=== PATIENT | female | born 2000 | race Caucasian/White ===

== ENCOUNTER 2024-11-07 21:44 | Emergency (ER) | payer OTHER, SELFPAY ==
[2024-11-07 21:47] VITALS: BP 118/72; PULSE 126; RESP 24; TEMP 37.7; O2SAT 99; BMI 21.6
--- NOTE | 2024-11-07 21:50 | EKG_ITS ---
[facility] [address] [address] Test Date: 2024-11-07 Pat Name: Susan Hernández Department: [facility] Room: Gender: Female [employer] Operator: BEREKET ROBERT : 2000 Requested By: Order Number: [id number] Reading MD: Prabhjot Jimenes MD Measurements Intervals [place] Rate: 113 P: 69 UT: 184 QRS: 84 QRSD: 82 T: 28 QT: 322 QTc: 441 Interpretive Statements Sinus tachycardia Electronically Signed On 11-08-2024 9:53:04 PST by Prabhjot Jimenes MD
--- NOTE | 2024-11-07 22:11 | ED_ITS ---
HPI - Anxiety General Chief Complaint: Anxiety Stated Complaint: chest px and tightness, panic attack Time Seen by Provider: 11/07/24 21:55 Source: patient Mode of arrival: Ambulatory History of Present Illness HPI narrative: 24-year-old female with history of anxiety, bipolar disorder presents for chest tightness and anxiety attack. Patient states that she has had worsening anxiety over the last day, abruptly worsening this evening. She says that her chest began to become tight she became short of breath. She states that this has happened to her in the past, but never this intense. She has as needed hydroxyzine for anxiety but only takes it occasionally. No medications taken prior to arrival. Denies history of surgeries or long travel, denies family history of coagulopathy, denies use of OCPs. Patient History Social History Smoking Status: Never smoker Smoking Status: Never smoker Exam Initial Vital Signs Initial Vital Signs: Vital Signs Temperature 99.8 F H 11/07/24 21:47 Pulse Rate 126 H 11/07/24 21:47 Respiratory Rate 24 11/07/24 21:47 Blood Pressure 118/72 11/07/24 21:47 Pulse Oximetry 99 11/07/24 21:47 Oxygen Delivery Method Room Air 11/07/24 21:47 Const: Awake, alert, anxious, nontoxic appearing Cardiac: Tachycardia, regular rhythm RESP: unlabored, clear bilaterally, no wheezing MSK: No swelling, full range of motion, pulses equal Skin: Warm, Dry, intact, no rashes Neuro: AO x3, CN II-XII grossly intact, moves all extremities Course Orders Ordered: Discontinued Medications Lorazepam (Lorazepam 2 Mg/Ml Inj) 0.5 mg IV NOW ONE Stop: 11/07/24 22:12 Last Admin: 11/07/24 22:29 Dose: 0.5 mg Documented By: ЕЛЕНА Vital Signs Vital signs: Vital Signs - 8 hr 11/07/24 21:47 11/07/24 22:24 11/07/24 22:24 Temperature 99.8 F H Pulse Rate 126 H 107 H Respiratory Rate 24 Blood Pressure 118/72 123/70 Pulse Oximetry 99 98 Oxygen Delivery Method Room Air 11/07/24 22:30 11/07/24 22:30 11/07/24 23:00 Temperature Pulse Rate 98 H 90 Respiratory Rate 16 Blood Pressure 108/59 L Pulse Oximetry 95 98 Oxygen Delivery Method Room Air 11/07/24 23:00 Temperature Pulse Rate Respiratory Rate Blood Pressure 115/59 L Pulse Oximetry Oxygen Delivery Method MDM - Anxiety Differential Diagnosis Differential diagnosis: Likely hyperventilation, panic disorder and acute anxiety Lab Data 11/07/24 22:25 11/07/24 22:25 Labs: Lab Results 11/07/24 Range/Units 22:25 WBC 5.9 (4.5-11.0) X10^3/uL RBC 4.47 (4.0-5.2) X10^6/uL Hgb 13.0 (12.0-16.0) g/dL Hct 38.3 (36-46) % MCV 85.8 (80-100) fL MCH 29.0 (26-34) PG MCHC 33.8 (30-36) % RDW 13.1 (11.6-14.8) % Plt Count 271 (150-400) X10^3/uL Neut % (Auto) 45.1 L (50-75) % Lymph % (Auto) 42.9 H (25-40) % Murray % (Auto) 10.2 (3-14) % Eos % (Auto) 1.5 L (2-4) % Baso % (Auto) 0.3 (0-2) % Neut # (Auto) 2700 (6924-9595) /uL Lymph # (Auto) 2500 (0232-4265) /uL Murray # (Auto) 600 (0-900) /uL Eos # (Auto) 100 (0-450) /uL Baso # (Auto) 0 (0-100) /uL Sodium 137 (137-145) mmol/L Potassium 3.7 (3.4-5.1) mmol/L Chloride 108 H (98-107) mmol/L Carbon Dioxide 24 (22-32) mmol/L BUN 10 (7-17) mg/dL Creatinine 0.63 (0.52-1.04) mg/dL Estimated GFR > 60 (>60) mL/min BUN/Creatinine Ratio 15.9 (6-22) Glucose 106 H (70-100) mg/dL Calcium 9.4 (8.4-10.2) mg/dL Total Bilirubin 0.4 (0.2-1.3) mg/dL AST 25 (14-36) IU/L ALT 18 (<35) IU/L Alkaline Phosphatase 43 (38-126) U/L Total Creatine Kinase 94 (30-135) U/L Troponin I < 0.012 (0.01-0.034) ng/mL NT-Pro-B Natriuret Pep 23 (<125) pg/mL Total Protein 7.5 (6.3-8.2) g/dL Albumin 4.6 (3.5-5.0) g/dL Globulin 2.9 (1.7-4.1) g/dL Albumin/Globulin Ratio 1.6 (1.0-2.8) TSH 2.61 (0.47-4.68) uIU/mL Imaging Data Chest x-ray: Radiologist's Impression: PROCEDURE: XR CHEST 1V INDICATIONS: chest tightness TECHNIQUE: One view of the chest was acquired. COMPARISON: None. FINDINGS: Surgical changes and devices: None. Lungs and pleura: Lungs are clear. No pleural effusions or pneumothorax. Mediastinum: Mediastinal contours appear normal. Heart size is normal. Bones and chest wall: No suspicious bony lesions. Overlying soft tissues appear unremarkable. IMPRESSION: No acute cardiopulmonary abnormality is seen. Dictated by: Clarke Fermin M.D. on 11/07/2024 at 22:30 Approved by: Clarke Fermin M.D. on 11/07/2024 at 22:30 ECG Data Interpretation: Sinus tachycardia at 113 beats per minute. Normal NM, no ST T wave changes MDM Narrative Medical decision making narrative: Well-appearing patient with chest tightness preceded by 1 day of increased anxiety. Patient is tachycardic on arrival, however she is quite tearful, anxious. No medications given prior to arrival in the emergency department. Very small dose of anxiolytics ordered. EKG sinus tachycardia without any concerning findings. No risk factors for DVT or PE. Laboratory work reviewed, unremarkable. Chest x-ray negative for acute findings. Patient is resting comfortably in bed, tachycardia has resolved after anxiolysis. Patient states that she feels much better. Lab and imaging findings discussed with the patient and her significant other at bedside. Recommended close follow up with the PCP. ED return precautions discussed. Discharge Plan Departure Patient Disposition: Home Clinical Impression: Feeling of chest tightness Instructions: DI for Atypical Chest Pain Activity Restrictions/Additional Instructions: Your blood work, EKG, and chest x-ray today were normal. I do not know the exact cause of your symptoms today. Anxiety can play a component be a cause of chest pain, but make sure that you follow up with your primary care provider to make sure that no other testing or treatment is needed. Continue to take your hydroxyzine as previously prescribed. Stand Alone Forms: Patient Portal/API/Survey
[2024-11-07 22:24] VITALS: BP 123/70; PULSE 107; O2SAT 98
[2024-11-07] MEDS: LORazepam 2 MG/ML INJ 0.5 MG IV (22:29)
[2024-11-07 22:30] VITALS: BP 108/59; PULSE 98; O2SAT 95
[2024-11-07 22:37] LABS: Add Manual Diff / Slide Review NO; Basophils Absolute Auto 0 /uL (0-100); Basophils Percent Auto 0.3 % (0-2); Eosinophils Absolute Auto 100 /uL (0-450); Eosinophils Percent Auto 1.5 % (2-4); Hematocrit 38.3 % (36-46); Lymphocytes Absolute Auto 2500 /uL (1100-4500); Lymphocytes Percent Auto 42.9 % (25-40); Mean Corpuscular HGB Conc 33.8 % (30-36); Mean Corpuscular Volume 85.8 fL (80-100); Monocytes Absolute Auto 600 /uL (0-900); Monocytes Percent Auto 10.2 % (3-14); Neutrophils Absolute Auto 2700 /uL (1500-7000); Neutrophils Percent Auto 45.1 % (50-75); Platelet Count 271 X10^3/uL (150-400); Red Blood Cell Count 4.47 X10^6/uL (4.0-5.2); Red Cell Distribution Width 13.1 % (11.6-14.8); White Blood Cell Count 5.9 X10^3/uL (4.5-11.0)
[2024-11-07 22:49] LABS: Alanine Aminotransferase 18 IU/L (<35); Albumin 4.6 g/dL (3.5-5.0); Albumin Globulin Ratio 1.6 (1.0-2.8); Alkaline Phosphatase 43 U/L (38-126); Aspartate Aminotransferase 25 IU/L (14-36); BUN Creatinine Ratio 15.9 (6-22); Bilirubin Total 0.4 mg/dL (0.2-1.3); Blood Urea Nitrogen 10 mg/dL (7-17); Calcium 9.4 mg/dL (8.4-10.2); Carbon Dioxide 24 mmol/L (22-32); Chloride 108 mmol/L (98-107); Creatine Kinase 94 U/L (30-135); Estimated Glomerular Filt Rate > 60 mL/min (>60); Globulin 2.9 g/dL (1.7-4.1); Glucose 106 mg/dL (70-100); HEMOLYSIS < 15 (0-50); Potassium 3.7 mmol/L (3.4-5.1); Sodium 137 mmol/L (137-145); Total Protein 7.5 g/dL (6.3-8.2)
[2024-11-07 23:00] VITALS: BP 115/59; PULSE 90; RESP 16; O2SAT 98
[2024-11-07 23:01] LABS: NT-proBNP (BNP-Adult 18+) 23 pg/mL (<125); Troponin I < 0.012 ng/mL (0.01-0.034)
[2024-11-07 23:25] LABS: Thyroid Stimulating Hormone 2.61 uIU/mL (0.47-4.68)
[2024-11-07 23:30] VITALS: BP 114/53; PULSE 76; RESP 16; O2SAT 97
== END 2024-11-07 23:44 | disposition home or self-care (01) ==
PROVIDERS: Emergency Provider Emergency Medicine
DX: R07.9 Chest pain, unspecified (principal); F41.8 Other specified anxiety disorders; R06.02 Shortness of breath; R00.0 Tachycardia, unspecified
CPT/HCPCS: 71045; 80053; 82550; 83880; 84443; 84484; 85025; 93005; 93010; 96374; 99283; 99284; J2060